=== PATIENT | female | born 1990 | race Caucasian/White ===

== ENCOUNTER 2018-06-10 08:25 | Observation (INO) | payer MEDICAID ==
[2018-06-10] VITALS (12 sets, daily range): BP systolic 125–151; BP diastolic 64–87; Ht 162.6 cm; Wt 60.0 kg
[~2018-06-10] VITALS: Ht 162.6 cm; Wt 60.0 kg
[2018-06-10 08:42] LABS: BASOPHILS 0.4 % (0-2); EOSINOPHILS 1.1 % (0-7); HEMATOCRIT 37.4 % (36.0-48.0); HEMOGLOBIN 12.3 g/dL (12-16); IMMATURE GRANULOCYTES 0.2 % (0-5); LYMPHOCYTES 42.9 % (15-50); MCH 26.5 pg (26.0-34.0); MCHC 32.9 g/dL (31.0-37.0); MCV 80.4 fL (80.0-100.0); MONOCYTES 6.7 % (2-11); NEUTROPHILS 48.7 % (40-80); PLATELET COUNT 276 10x3/uL (130-400); RBC 4.65 10x6/uL (4.00-5.40); RDW 14.8 % (11.5-14.5); WBC 5.6 10x3/uL (4.8-10.8)
[2018-06-10 08:53] LABS: CALC OSMOLALITY 272 mosm/kg (275-300); CARBON DIOXIDE 25.8 mmol/L (21.0-32.0); CHLORIDE - SERUM 101 mmol/L (98-107); CREATININE - SERUM 0.9 mg/dL (0.6-1.3); GLUCOSE 96 mg/dL (74-106); POTASSIUM - SERUM 3.6 mmol/L (3.5-5.1); SODIUM 135 mmol/L (136-145); UREA NITROGEN 21 mg/dL (7-18); eGFR NON AFRICAN AMERICAN 80 mL/min (90-120)
[2018-06-10 09:23] LABS: APTT 28.7 SECONDS (22.8-39.4); INR 1.02 (0.85-1.17); PROTIME 12.9 SECONDS (11.6-15.0)
[2018-06-11] VITALS: BP 144/109
[2018-06-11 04:00] VITALS: BP 147/77
[2018-06-11 06:17] LABS: BASOPHILS 0.2 % (0-2); EOSINOPHILS 1.2 % (0-7); HEMATOCRIT 32.4 % (36.0-48.0); HEMOGLOBIN 10.5 g/dL (12-16); LYMPHOCYTES 47.1 % (15-50); MCH 26.1 pg (26.0-34.0); MCHC 32.4 g/dL (31.0-37.0); MCV 80.6 fL (80.0-100.0); MEAN PLATELET VOLUME 9.3 fL (7.4-10.4); MONOCYTES 7.5 % (2-11); PLATELET COUNT 249 10x3/uL (130-400); RBC 4.02 10x6/uL (4.00-5.40); RDW 15.2 % (11.5-14.5); WBC 5.6 10x3/uL (4.8-10.8)
[2018-06-11 06:36] LABS: ANION GAP 12.8 mmol/L (8-16); CALCIUM 7.9 mg/dL (8.5-10.1); CARBON DIOXIDE 24.1 mmol/L (21.0-32.0); POTASSIUM - SERUM 3.9 mmol/L (3.5-5.1)
[2018-06-11 09:18] VITALS: BP 139/97
[2018-06-11 09:56] LABS: APPEARANCE HAZY (CLEAR); BILIRUBIN NEGATIVE (NEGATIVE); COLOR YELLOW (YELLOW); GLUCOSE NEGATIVE (NEGATIVE); KETONE NEGATIVE (NEGATIVE); NITRITE NEGATIVE (NEGATIVE); PROTEIN 2+ mg/dL (NEGATIVE); UROBILINOGEN NORMAL (NORMAL)
[2018-06-11 09:58] LABS: BACTERIA FEW /hpf (NONE SEEN); EPITHELIAL CELLS 0-5 /hpf (0-5); MUCUS <1+ /lpf (NONE SEEN); RED CELLS - URINE 0-5 /hpf (0-5)
[2018-06-11 12:41] LABS: HEMATOCRIT 34.2 % (36.0-48.0); HEMOGLOBIN 11.1 g/dL (12-16)
--- NOTE | 2018-06-12 08:11 | MORECARE ---
CASE MANAGEMENT DISCHARGE SUMMARY PATIENT: PAULINE LEON UNIT: [id number] ADM DATE: 06/10/18 AGE: 28 : [birth year] SEX: F ROOM/BED: D.2107 AUTHOR: JENNA DE LEON PHYSICIAN: REFERRING PHYSICIAN: BRITTANY SAUNDERS MD DATE OF SERVICE: 06/12/18 Discharge Plan Patient Name: PAULINE LEON [facility] [facility] 1990 Planned Disposition: Home Anticipated Discharge Date: 06/11/18 Discharge Date: 06/11/2018 Expected LOS: 1 Initial Reviewer: [id number] Initial Review Date: 06/12/2018 Generated: 06/12/18 9:10 am Patient Name: PAULINE LEON Page [id number] at 0811 All edits/amendments must be made on the electronic document DICTATION DATE: 06/12/18809 MINUTE CLERK FOR BASIC TRAFFIC: EN 06/12/18809 RPT#: [id number] DC DATE:06/11/18 STATUS: DIS IN [facility] [address] [facility] [place] [address] END OF REPORT
== END 2018-06-11 14:04 | disposition home or self-care (01) ==
LOC: D.SP 08:25 → D.RAD 11:00 → D.M2 12:44 → OBSVTIME 12:44 → D.M2 06-11 14:04
PROVIDERS: Internal Medicine Nephrology; Radiology Vascular & Interventional Radiology; ADMIT Internal Medicine Nephrology
DX: R31.9 Hematuria, unspecified (principal); R80.9 Proteinuria, unspecified; M25.551 Pain in right hip